=== PATIENT | female | born 1990 | race Caucasian/White ===

== ENCOUNTER 2018-04-03 00:32 | Emergency (ER) | payer OTHER ==
[2018-04-03] MEDS ORDERED: Ketorolac 60 MG/2 ML SDV IM ONE (01:34)
--- NOTE | 2018-04-03 10:14 | ER ---
DATE SEEN: 04/03/2018 CHIEF COMPLAINT: Chest pain. HISTORY OF PRESENT ILLNESS: The patient is a 28-year-old female with chest pain for about an hour and a half, sharp, retrosternal pain that radiates to the back, nothing seems to improve. No shortness of breath, nausea, or vomiting. PAST MEDICAL HISTORY: Healthy with no active medical problems. SOCIAL HISTORY: Occasional drinking. MEDICATIONS: control pills. ALLERGIES: None. PHYSICAL EXAMINATION: GENERAL: Anxious. VITAL SIGNS: Blood pressure 143/84, temperature 99.0, oxygen is 99%. ENT: Negative. NECK: Supple. CHEST: No reproducible tenderness of the sternum. CARDIOVASCULAR: Normal. LUNGS: Clear. MENTAL STATUS: Anxious. Answers questions well. LABORATORY DATA: D-dimer, troponin, CBC, CMP negative. EKG normal sinus rhythm. Chest x-ray normal. IMPRESSION: Atypical chest pain. PLAN: Reassurance. Follow up annelise /[id number] KAMAR/LACI
--- NOTE | 2018-04-04 10:50 | CR ---
INDICATION: Chest pain. CHEST: PA and lateral views of the chest were obtained 04/03/18 - no comparisons. The heart and mediastinum were unremarkable. Overlying EKG leads are noted. A minimal dextroconcave scoliosis is noted at the lower thoracic spine. An active infiltrate or effusion was not identified. IMPRESSION: No acute process. MTDD
== END 2018-04-03 02:10 | disposition home or self-care (01) ==
LOC: FB.ED 00:32
DX: R07.89 Other chest pain (principal)
CPT/HCPCS: 36415; 71046; 80053; 84484; 85025; 85379; 93005; 96372; 99285; J1885